=== PATIENT | male | born 1940 | race Caucasian/White ===

== ENCOUNTER 2017-01-22 00:09 | Emergency (ER) | payer MEDICARE, OTHER ==
[2017-01-22 00:18] VITALS: BP 130/69
[2017-01-22] MEDS ORDERED: Proparacaine 0.5% Ophth Soln 15 ML Bottle EYELF PRN (00:29)
[2017-01-22] MEDS ORDERED: Fluorescein 1 MG Ophth Strip EYELF ONE (00:30)
[2017-01-22 01:24] LABS: CHLORIDE,CL 104 mmol/L (98-107); SODIUM,NA 139 mmol/L (136-145)
--- NOTE | 2017-01-22 02:05 | EDM.PDOC ---
ED HPI GENERAL MEDICAL PROBLEM - General Chief Complaint: Eye Problems Stated Complaint: Pain Behind Left Eye Time Seen by Provider: 01/22/17 00:25 Source of Information: Reports: Patient History Limitations: Reports: No Limitations - History of Present Illness INITIAL COMMENTS - FREE TEXT/NARRATIVE: Pt. states that he developed pain behind his L eye tonight prior to going to sleep. Pt. states that he had just taken a shower and denied any foreign body or material exposure to the eye. Pt. states that the onset of the discomfort was very acute, as worse when looking medially and superiorly with the eye. Pt. states that his vision is preserved. Pt. states that he has not have any fever or chills and denies any occular or facial trauma. He denies any increased lacrimation, sinus congestion, or rhinorrhea. He also denies any blurred vision. Onset: Today, Sudden Onset Time: 22:30 Location: Reports: Face (posterior L eye) Quality: Reports: Ache, Sharp, Stabbing Severity: Moderate Behind Left Eye Pain Score (Numeric/FACES): 5 - Related Data Allergies Allergy/AdvReac Type Severity Reaction Status Date / Time budesonide [From Symbicort] Allergy Difficulty Verified 01/22/17 00:16 Breathing dextromethorphan Allergy Cannot Verified 01/22/17 00:16 Remember formoterol fumarate Allergy Difficulty Verified 01/22/17 00:16 [From Symbicort] Breathing guaifenesin [From Robitussin] Allergy Difficulty Verified 01/22/17 00:16 Breathing mometasone furoate Allergy Difficulty Verified 01/22/17 00:16 Breathing Home Meds: Home Meds Aspirin [Ramses Chewable] 1 tab PO DAILY 03/28/13 [History] Docusate Sodium [Colace] 1 tab PO BID PRN 03/28/13 [History] FLUoxetine [PROzac] 2 cap PO DAILY 03/28/13 [History] Finasteride [Proscar] 1 tab PO DAILY 03/28/13 [History] Gabapentin [Neurontin] 1 tab PO TID 03/28/13 [History] Simvastatin [Zocor] 1 tab PO BEDTIME 03/28/13 [History] oxyCODONE HCl/Acetaminophen [oxyCODONE-Acetaminophen 5-325] 1 - 2 tab PO Q6H PRN 03/28/13 [History] Meclizine [Antivert] 12.5 - 25 mg PO TID PRN #30 tab 06/12/13 [Rx] Albuterol Sulfate [Ventolin Hfa] 8 gm IH Q6H PRN 02/23/14 [History] Albuterol [Proventil Neb Soln] 2.5 mg INH QIDRT PRN 02/23/14 [History] Alum Hydrox/Mag Hydrox/Simeth [Maalox Advanced] 5 ml PO BID PRN 02/23/14 [ History] Ascorbate Calcium/Bioflavonoid [[place]-C 500 MG] 1 tab PO DAILY 02/23/14 [History ] Cholecalciferol (Vitamin D3) [Vitamin D] 1,000 unit PO BID 02/23/14 [History] Diclofenac Sodium 50 mg PO BID 02/23/14 [History] Docusate Sodium/Sennosides [Senokot-S] 1 each PO BID PRN 02/23/14 [History] Fluocinonide [Fluocinonide 0.05% Oint] 30 gm TOP BID PRN 02/23/14 [History] Fluticasone/Salmeterol [Advair 250-50 Diskus] 1 puff INH BID 02/23/14 [History] Ibuprofen 2 tab PO Q8H PRN 02/23/14 [History] Ipratropium [Atrovent] 0.5 mg INH Q6H 02/23/14 [History] Lycopene 10 mg PO DAILY 02/23/14 [History] Magnesium Hydroxide [Milk of Magnesia] 15 - 30 mg PO Q6H PRN 02/23/14 [History] Magnesium Oxide [Magnesium] 1 tab PO DAILY 02/23/14 [History] Menthol/Methyl Salicylate [Analgesic [place]] 29 gm .XX 02/23/14 [History] Morphine [MS Contin] 60 mg PO Q12H 02/23/14 [History] Multivitamin [Multivitamins] 1 each PO DAILY 02/23/14 [History] Nitroglycerin [Nitrostat] 0.4 mg SL ASDIRECTED PRN 02/23/14 [History] [place]-3/DHA/Epa/Fish Oil [Fish Oil 1,400 MG Softgel] 1 each PO DAILY 02/23/14 [ History] [place] Oil/[place]-3 Fatty Acids [Sv [place] Oil 1,000 mg Softgel] 1 each PO DAILY 02/23/14 [History] Terazosin [Hytrin] 2 tab PO DAILY 02/23/14 [History] Vitamin B Comp W-C/FA/Zinc [Julissa B Strong with C & Zinc Tb] 1 each PO DAILY [History] Vitamin E 1 tab PO DAILY 02/23/14 [History] Melatonin 6 mg PO BEDTIME 01/18/16 [History] Past Medical History Respiratory History: Reports: Asthma, COPD Musculoskeletal History: Reports: Other (See Below) Other Musculoskeletal History: costochondritis Social & Family History - Tobacco Use Smoking Status *Q: Former Smoker Years of Tobacco use: 20 Used Tobacco, but Quit: Yes Month Tobacco Last Used: 30 years ago Second Hand Smoke Exposure: No - Alcohol Use Days Per Week of Alcohol Use: 0 - Recreational Drug Use Recreational Drug Use: No ED ROS GENERAL - Review of Systems Review Of Systems: See Below Constitutional: Reports: No Symptoms HEENT: Reports: Eye Pain Respiratory: Reports: No Symptoms Cardiovascular: Reports: No Symptoms Endocrine: Reports: No Symptoms GI/Abdominal: Reports: No Symptoms : Reports: No Symptoms Musculoskeletal: Reports: No Symptoms Skin: Reports: No Symptoms Neurological: Reports: No Symptoms Psychiatric: Reports: No Symptoms Hematologic/Lymphatic: Reports: No Symptoms Immunologic: Reports: No Symptoms ED EXAM GENERAL W FULL EYE - Physical Exam Exam: See Below Exam Limited By: No Limitations General Appearance: Alert, WD/WN, No Apparent Distress Eye Exam: Bilateral Eye: EOMI, Normal Fundi, Normal Inspection, PERRL Visual Acuity (R) 20/: 25 Visual Acuity (L) 20/: 20 IOP (L) in mmH IOP Measure with (Equipment): Tonopen Eyelids: Bilateral: Normal Appearance Conjunctiva & Sclera: Bilateral: Normal Appearance Cornea Exam: Bilateral: Normal Appearance Extraocular Movements: Bilateral: Intact Pupils: Normal Accommodation Pupillary Size: Bilateral: 3 mm Pupillary Reaction: Bilateral: Brisk Anterior Chamber: Bilateral: Normal Appearance Posterior Chamber: Bilateral: Normal Funduscopic Ears: Normal External Exam, Normal Canal, Hearing Grossly Normal, Normal TMs Nose: Normal Inspection, Normal Mucosa, No Blood Throat/Mouth: Normal Inspection, Normal Lips, Normal Oropharynx, Normal Voice Head: Atraumatic, Normocephalic Neck: Normal Inspection, Supple, Non-Tender, Full Range of Motion Respiratory/Chest: No Respiratory Distress, Lungs Clear, Normal Breath Sounds, No Accessory Muscle Use Cardiovascular: Normal Peripheral Pulses, Regular Rate, Rhythm, No Edema Neurological: Alert, Oriented, CN II-XII Intact, Normal Cognition, Normal Gait, Normal Reflexes, No Motor/Sensory Deficits Skin Exam: Warm, Dry, Intact, Normal Color, No Rash Course - Vital Signs Last Recorded V/S: Last Vital Signs Temp 37.5 C 01/22/17 00:17 Pulse 69 01/22/17 00:17 Resp 16 01/22/17 00:17 BP 130/69 01/22/17 00:17 Pulse Ox 96 01/22/17 00:17 - Orders/Labs/Meds Orders: Active Orders 24 hr Category Date Time Status Head wo Cont [CT] Stat Exams 01/22/17 00:29 Taken Proparacaine [Proparacaine 0.5% Ophth Soln] Med 01/22/17 00:29 Active 1 ml EYELF ASDIRECTED PRN Medication Orders Proparacaine HCl (Proparacaine 0.5% Ophth Soln) 1 ml EYELF ASDIRECTED PRN PRN Reason: Other Labs: Laboratory Tests 01/22/17 01/22/17 01/22/17 Range/Units 00:58 00:58 00:58 WBC 7.2 (4.0-10.0) x10^3/uL RBC 4.32 L (4.5-6.0) x10^6/uL Hgb 13.7 L (14.0-18.0) g/dL Hct 40.4 (40.0-52.0) % MCV 93.5 H (78.0-93.0) fL MCH 31.7 (26.0-32.0) pg MCHC 33.9 (32.0-36.0) g/dL RDW Coeff of Lillian 12.2 (10.0-15.0) % Plt Count 146 (130-400) x10^3/uL Neut % (Auto) 53.9 (50.0-80.0) % Lymph % (Auto) 22.2 L (25.0-50.0) % [place] % (Auto) 9.3 (2.0-11.0) % Eos % (Auto) 14.0 H (0.0-4.0) % Baso % (Auto) 0.6 (0.2-1.2) % PT 10.2 (9.8-11.8) SEC INR 0.9 L (2.0-3.5) Sodium 139 (136-145) mmol/L Potassium 4.3 (3.5-5.1) mmol/L Chloride 104 (98-107) mmol/L Carbon Dioxide 29 (21-32) mmol/L BUN 19 H (7-18) mg/dL Creatinine 0.8 (0.70-1.30) mg/dL Est Cr Clr Drug Dosing 77.19 mL/min Estimated GFR (MDRD) > 60 Glucose 111 H (74-106) mg/dL Calcium 8.3 L (8.5-10.1) mg/dL Corrected Calcium 8.70 (8.5-10.1) mg/dL Total Bilirubin 0.8 (0.2-1.0) mg/dL AST 14 L (15-37) U/L ALT 22 (16-63) U/L Alkaline Phosphatase 66 (46-116) U/L C-Reactive Protein 2.1 H (<=0.9) mg/dL Total Protein 6.9 (6.4-8.2) g/dL Albumin 3.5 (3.4-5.0) g/dL Globulin 3.4 Albumin/Globulin Ratio 1.03 Meds: Medications Generic Name Dose Route Start Last Admin Trade Name Freq PRN Reason Stop Dose Admin Proparacaine HCl 1 ml 01/22/17 00:29 Proparacaine 0.5% Ophth Soln EYELF ASDIRECTED PRN Other Discontinued Medications Generic Name Dose Route Start Last Admin Trade Name Freq PRN Reason Stop Dose Admin Fluorescein Sodium 1 mg 01/22/17 00:30 Ful-Sayda EYELF 01/22/17 00:31 ONETIME ONE Departure - Departure Time of Disposition: 02:01 Disposition: Home, Self-Care 01 Condition: Good Clinical Impression: Ocular pain, left eye - Discharge Information Referrals: Melo Cabrera MD [Primary Care Provider] - Forms: ED Department Discharge Additional Instructions: Call [facility] tomorrow morning [phone]. I spoke with Dr. Mayo at [facility] and he would like to see you in the clinic tomorrow morning. Return to ER if you have any rapid vision loss or change. The address for the eye clinic is [address] [place] [address] in [place]. Tell the guest relations receptionist that Dr. Mayo would like to see you today. If you are having trouble getting an appointment, please contact the ER and I will assist you. - My Orders Last 24 Hours: My Active Orders 01/22/17 00:29 Head wo Cont [CT] Stat Proparacaine [Proparacaine 0.5% Ophth Soln] 1 ml EYELF ASDIRECTED PRN - Assessment/Plan Last 24 Hours: My Active Orders 01/22/17 00:29 Head wo Cont [CT] Stat Proparacaine [Proparacaine 0.5% Ophth Soln] 1 ml EYELF ASDIRECTED PRN Assessment:: L eye pain Plan: Call [facility] tomorrow morning [phone]. I spoke with Dr. Mayo at [facility] and he would like to see you in the clinic tomorrow morning. Return to ER if you have any rapid vision loss or change. The address for the eye clinic is [address] [place] [address] in [place]. Tell the guest relations receptionist that Dr. Mayo would like to see you today. If you are having trouble getting an appointment, please contact the ER and I will assist you.
== END 2017-01-22 01:00 | disposition home or self-care (01) ==
LOC: VM.ED 00:09
DX: H57.12 Ocular pain, left eye (principal); Z87.891 Personal history of nicotine dependence; J44.9 Chronic obstructive pulmonary disease, unspecified; Z79.82 Long term (current) use of aspirin; Z79.899 Other long term (current) drug therapy; Z88.8 Allergy status to other drugs, medicaments and biological substances
CPT/HCPCS: 36415; 70450; 80053; 85025; 85610; 86140; 99283-GF; 99284

== ENCOUNTER 2018-04-18 16:13 | Emergency (ER) | payer OTHER, MEDICARE ==
[2018-04-18 16:30] VITALS: BP 107/54
[2018-04-18] MEDS: Meclizine 25 MG Tab PO ONE (16:56)
[2018-04-18] MEDS: LORazepam 1 MG Tab PO ONE (16:56)
--- NOTE | 2018-04-18 17:05 | CT ---
[id number] CT/CT Head WO IV EXAM: CT Head WO IV CLINICAL DATA: VERTIGO COMPARISON: CORRELATION IS MADE WITH THE EXAM OF JANUARY 22, 2017. FINDINGS: There is no mass or mass effect. There is no hemorrhage or hydrocephalus. There are no extra-axial fluid collections. There are no sites of abnormal attenuation. IMPRESSION: NO PLAIN CT EVIDENCE OF ACUTE INTRACRANIAL PROCESS. Macho Crenshaw MD 04/18/18 1661 Thank you for allowing us to participate in the care of your patient.
[2018-04-18 17:30] LABS: CHLORIDE,CL 106 mmol/L (98-107); SODIUM,NA 142 mmol/L (136-145)
[2018-04-18 17:31] LABS: ANION GAP 11.7 mmol/L (10-20)
--- NOTE | 2018-04-19 06:24 | EDM.PDOC ---
ED HPI GENERAL MEDICAL PROBLEM - General Chief Complaint: General Time Seen by Provider: 04/18/18 16:20 Source of Information: Reports: Patient History Limitations: Reports: No Limitations - History of Present Illness INITIAL COMMENTS - FREE TEXT/NARRATIVE: Complains of dizziness that started earlier today. Pt. states that he has not recently been ill. No chest pain or shortness of breath. Denies any hearing problems. Pt. has had intermittent vertigo in the past and has taken meclizine. No nausea or vomiting. Pt. states that he feels as though the room is spinning. He states that when he turns his head, it feels as though it keeps on spinning when it stops. Onset Date: 04/19/18 - Related Data Allergies Allergy/AdvReac Type Severity Reaction Status Date / Time budesonide [From Symbicort] Allergy Difficulty Verified 04/18/18 16:34 Breathing dextromethorphan Allergy Cannot Verified 04/18/18 16:34 Remember formoterol fumarate Allergy Difficulty Verified 04/18/18 16:34 [From Symbicort] Breathing guaifenesin [From Robitussin] Allergy Difficulty Verified 04/18/18 16:34 Breathing mometasone furoate Allergy Difficulty Verified 04/18/18 16:34 Breathing Home Meds: Home Meds Aspirin [Ramses Chewable] 1 tab PO DAILY 03/28/13 [History] Docusate Sodium [Colace] 1 tab PO BID PRN 03/28/13 [History] FLUoxetine [PROzac] 2 cap PO DAILY 03/28/13 [History] Finasteride [Proscar] 1 tab PO DAILY 03/28/13 [History] Simvastatin [Zocor] 1 tab PO BEDTIME 03/28/13 [History] oxyCODONE HCl/Acetaminophen [oxyCODONE-Acetaminophen 5-325] 1 - 2 tab PO Q6H PRN 03/28/13 [History] Ascorbate Calcium/Bioflavonoid [[place]-C 500 MG] 1 tab PO DAILY 02/23/14 [History ] Cholecalciferol (Vitamin D3) [Vitamin D] 1,000 unit PO BID 02/23/14 [History] Diclofenac Sodium 50 mg PO BID 02/23/14 [History] Docusate Sodium/Sennosides [Senokot-S] 2 each PO BID PRN 02/23/14 [History] Ibuprofen 2 tab PO Q8H PRN 02/23/14 [History] Lycopene 10 mg PO DAILY 02/23/14 [History] Magnesium Hydroxide [Milk of Magnesia] 15 - 30 mg PO DAILY PRN 02/23/14 [History ] Magnesium Oxide [Magnesium] 1 tab PO DAILY 02/23/14 [History] Multivitamin [Multivitamins] 1 each PO DAILY 02/23/14 [History] [place]-3/DHA/Epa/Fish Oil [Fish Oil 1,400 MG Softgel] 1 each PO DAILY 02/23/14 [ History] [place] Oil/[place]-3 Fatty Acids [Sv [place] Oil 1,000 mg Softgel] 1 each PO DAILY 02/23/14 [History] Melatonin 6 mg PO BEDTIME 01/18/16 [History] Alum Hydrox/Mag Hydrox/Simeth [Maalox Advanced] 5 ml PO BID PRN 04/18/18 [ History] Benzonatate 100 mg PO TID PRN 04/18/18 [History] Lidocaine 5% [Lidoderm 5%] 1 patch TOP DAILY 04/18/18 [History] Meclizine [Antivert] 12.5 - 25 mg PO Q4H PRN 04/18/18 [History] Meloxicam 15 mg PO DAILY 04/18/18 [History] Morphine Sulfate [Morphine Sulfate ER] 30 mg PO Q8H 04/18/18 [History] Naloxone HCl [Narcan] 4 mg NS ASDIRECTED 04/18/18 [History] Prazosin HCl [Prazosin] 4 mg PO BEDTIME 04/18/18 [History] Pregabalin [Lyrica] 150 mg PO BID 04/18/18 [History] Terbinafine [LamISIL AT 1% Crm] 12 gm TOP BID 04/18/18 [History] Thiamine [Vitamin B-1] 100 mg PO BEDTIME 04/18/18 [History] Topiramate 100 mg PO BEDTIME 04/18/18 [History] Vitamin E 400 unit PO DAILY 04/18/18 [History] tiZANidine [Zanaflex] 4 mg PO Q6H PRN 04/18/18 [History] Past Medical History Respiratory History: Reports: Asthma, COPD Musculoskeletal History: Reports: Other (See Below) Other Musculoskeletal History: costochondritis Social & Family History - Tobacco Use Smoking Status *Q: Never Smoker ED ROS GENERAL - Review of Systems Review Of Systems: See Below Constitutional: Reports: No Symptoms HEENT: Reports: No Symptoms Respiratory: Reports: No Symptoms Cardiovascular: Reports: No Symptoms Endocrine: Reports: No Symptoms GI/Abdominal: Reports: No Symptoms : Reports: No Symptoms Musculoskeletal: Reports: No Symptoms Skin: Reports: No Symptoms Neurological: Reports: Dizziness Psychiatric: Reports: No Symptoms Hematologic/Lymphatic: Reports: No Symptoms Immunologic: Reports: No Symptoms ED EXAM, GENERAL - Physical Exam Exam: See Below Exam Limited By: No Limitations General Appearance: Alert, WD/WN, No Apparent Distress Eye Exam: Bilateral Eye: EOMI, Normal Fundi, Normal Inspection, Nystagmus (R beating horizontal), PERRL Ears: Normal External Exam, Normal Canal, Hearing Grossly Normal, Normal TMs Ear Exam: Bilateral Ear: Auricle Normal, Canal Normal, TM normal Nose: Normal Inspection, Normal Mucosa, No Blood Throat/Mouth: Normal Inspection, Normal Lips, Normal Teeth, Normal Gums, Normal Oropharynx, Normal Voice, No Airway Compromise Head: Atraumatic, Normocephalic Neck: Normal Inspection, Supple, Non-Tender, Full Range of Motion Respiratory/Chest: No Respiratory Distress, Lungs Clear, Normal Breath Sounds, No Accessory Muscle Use, Chest Non-Tender Cardiovascular: Normal Peripheral Pulses, Regular Rate, Rhythm, No Edema, No Gallop, No JVD, No Murmur, No Rub Peripheral Pulses: 4+: Radial (L), Radial (R) GI/Abdominal: Normal Bowel Sounds, Soft, Non-Tender, No Organomegaly, No Distention, No Abnormal Bruit, No Mass (Male) Exam: Deferred Rectal (Males) Exam: Deferred Back Exam: Normal Inspection, Full Range of Motion, NT Extremities: Normal Inspection, Normal Range of Motion, Non-Tender, Normal Capillary Refill, No Pedal Edema Neurological: Alert, Oriented, CN II-XII Intact, Normal Cognition, Normal Gait, Normal Reflexes, No Motor/Sensory Deficits Course - Vital Signs Last Recorded V/S: Last Vital Signs Temp 37.3 C 04/18/18 16:28 Pulse 77 04/18/18 16:28 Resp 16 04/18/18 16:28 BP 107/54 L 04/18/18 16:28 Pulse Ox 98 04/18/18 16:28 - Orders/Labs/Meds Orders: Active Orders 24 hr Category Date Time Status EKG Documentation Completion [RC] STAT Care 04/18/18 16:39 Active Labs: Laboratory Tests 04/18/18 04/18/18 Range/Units 16:57 16:57 WBC 9.2 (4.0-10.0) x10^3/uL RBC 4.28 L (4.5-6.0) x10^6/uL Hgb 13.4 L (14.0-18.0) g/dL Hct 40.9 (40.0-52.0) % MCV 95.6 H (78.0-93.0) fL MCH 31.3 (26.0-32.0) pg MCHC 32.8 (32.0-36.0) g/dL RDW Coeff of Lillian 12.9 (10.0-15.0) % Plt Count 158 (130-400) x10^3/uL Neut % (Auto) 72.1 (50.0-80.0) % Lymph % (Auto) 15.5 L (25.0-50.0) % [place] % (Auto) 8.3 (2.0-11.0) % Eos % (Auto) 3.9 (0.0-4.0) % Baso % (Auto) 0.2 (0.2-1.2) % Sodium 142 (136-145) mmol/L Potassium 3.7 (3.5-5.1) mmol/L Chloride 106 (98-107) mmol/L Carbon Dioxide 28 (21-32) mmol/L Anion Gap 11.7 (10-20) mmol/L BUN 20 H (7-18) mg/dL Creatinine 0.9 (0.70-1.30) mg/dL Est Cr Clr Drug Dosing 65.28 mL/min Estimated GFR (MDRD) > 60 Glucose 122 H (74-106) mg/dL Calcium 8.3 L (8.5-10.1) mg/dL Corrected Calcium 8.86 (8.5-10.1) mg/dL Total Bilirubin 0.7 (0.2-1.0) mg/dL AST 13 L (15-37) U/L ALT 25 (16-63) U/L Alkaline Phosphatase 60 (46-116) U/L Troponin I < 0.017 (<=0.056) ng/mL C-Reactive Protein 0.3 (<=0.9) mg/dL Total Protein 6.5 (6.4-8.2) g/dL Albumin 3.3 L (3.4-5.0) g/dL Globulin 3.2 Albumin/Globulin Ratio 1.03 Meds: Medications Discontinued Medications Generic Name Dose Route Start Last Admin Trade Name Freq PRN Reason Stop Dose Admin Lorazepam 1 mg 04/18/18 16:39 04/18/18 16:56 Ativan PO 04/18/18 16:40 1 mg ONETIME ONE Administration Meclizine HCl 25 mg 04/18/18 16:39 04/18/18 16:56 Antivert PO 04/18/18 16:40 25 mg ONETIME ONE Administration Departure - Departure Time of Disposition: 17:45 Disposition: Home, Self-Care 01 Condition: Good Clinical Impression: Labyrinthitis, Vertigo - Discharge Information Instructions: Labyrinthitis, [id number] Referrals: Melo Cabrera MD [Primary Care Provider] - Forms: ED Department Discharge Additional Instructions: Take meclizine 25mg if you are continuing to have vertigo. Our physical therapy dept. will be in contact with your tomorrow to set up an appointment for vestibular therapy. - My Orders Last 24 Hours: My Active Orders 04/18/18 16:39 EKG Documentation Completion [RC] STAT - Assessment/Plan Last 24 Hours: My Active Orders 04/18/18 16:39 EKG Documentation Completion [RC] STAT Plan: Take meclizine 25mg if you are continuing to have vertigo. Our physical therapy dept. will be in contact with your tomorrow to set up an appointment for vestibular therapy.
== END 2018-04-18 17:45 | disposition home or self-care (01) ==
LOC: VM.ED 16:13
DX: H83.09 Labyrinthitis, unspecified ear (principal); J44.9 Chronic obstructive pulmonary disease, unspecified; Z88.8 Allergy status to other drugs, medicaments and biological substances; Z79.82 Long term (current) use of aspirin; Z79.899 Other long term (current) drug therapy
CPT/HCPCS: 36415; 70450; 80053; 84484; 85025; 86140; 93005; 99284; A9270

== ENCOUNTER 2022-09-07 14:53 | Emergency (ER) | payer OTHER, MEDICARE ==
[2022-09-07 15:30] VITALS: BP 87/48; PULSE 73
== END 2022-09-07 17:22 | disposition home or self-care (01) ==
LOC: VM.ED 14:53
DX: S02.32XA Fracture of orbital floor, left side, initial encounter for closed fracture (principal); S01.21XA Laceration without foreign body of nose, initial encounter; J44.9 Chronic obstructive pulmonary disease, unspecified; Z79.899 Other long term (current) drug therapy; Z88.8 Allergy status to other drugs, medicaments and biological substances; W01.198A Fall on same level from slipping, tripping and stumbling with subsequent striking against other object, initial encounter
CPT/HCPCS: 70450; 70486; 99283

== ENCOUNTER 2023-07-04 11:11 | Emergency (ER) | payer OTHER, MEDICARE ==
[2023-07-04 11:38] LABS: BASOPHILS ABSOLUTE AUTO 0.1 x10^3/uL (0.0-0.2); BASOPHILS PERCENT AUTO 0.8 % (0.2-1.2); EOSINOPHILS ABSOLUTE AUTO 0.5 x10^3/uL (0.0-0.5); EOSINOPHILS PERCENT AUTO 6.4 % (0.0-4.0); HEMATOCRIT 45.6 % (40.0-52.0); IMMATURE GRAN ABSOLUTE AUTO 0.01 x10^3/uL (0.00-0.07); LYMPHOCYTES ABSOLUTE AUTO 1.1 x10^3/uL (1.0-4.8); LYMPHOCYTES PERCENT AUTO 13.9 % (25.0-50.0); MEAN CORPUSCULAR HEMOGLOBIN 31.8 pg (26.0-32.0); MEAN CORPUSCULAR HGB CONC 32.9 g/dL (32.0-36.0); MEAN CORPUSCULAR VOLUME 96.8 fL (78.0-93.0); MONOCYTES ABSOLUTE AUTO 0.5 x10^3/uL (0.0-0.8); NEUTROPHILS ABSOLUTE AUTO 5.8 x10^3/uL (1.8-7.7); NEUTROPHILS PERCENT AUTO 72.8 % (50.0-80.0); PLATELET COUNT,PLT 148 x10^3/uL (130-400); RED BLOOD CELL COUNT 4.71 x10^6/uL (4.5-6.0); WHITE BLOOD CELL COUNT,WBC 7.9 x10^3/uL (4.0-10.0)
[2023-07-04] MEDS: methylPREDNISolone Sodium Succinate 125 MG/2 ML SDV IVPUSH ONE (11:59)
[2023-07-04] MEDS: Sodium Chloride 0.9% 10 ML Syringe FLUSH PRN (12:00)
[2023-07-04 12:02] LABS: A/G RATIO 1.09; ALANINE AMINOTRANSFERASE,ALT 24 U/L (16-63); ALBUMIN 3.6 g/dL (3.4-5.0); ALKALINE PHOSPHATASE 72 U/L (46-116); ASPARTATE AMNIOTRANSFERASE,AST 26 U/L (15-37); BILIRUBIN TOTAL 1.5 mg/dL (0.2-1.0); BLOOD UREA NITROGEN,BUN 15 mg/dL (7-18); CALCIUM 8.7 mg/dL (8.5-10.1); CARBON DIOXIDE,CO2 27 mmol/L (21-32); CHLORIDE,CL 105 mmol/L (98-107); CREATININE 0.8 mg/dL (0.70-1.30); GLUCOSE RANDOM 94 mg/dL (70-99); MAGNESIUM 1.8 mg/dL (1.8-2.4); PROTEIN TOTAL,TP 6.9 g/dL (6.4-8.2); SODIUM,NA 142 mmol/L (136-145)
[2023-07-04 12:03] LABS: C-REACTIVE PROTEIN < 0.50 mg/dL (<=0.50); ESTIMATED GFR 89 mL/min (>=60)
[2023-07-04 12:20] LABS: INR 1.1 (0.9-1.1); PROTHROMBIN TIME 10.8 SEC (8.9-11.5); PTT,PARTIAL THROMBOPLSTIN TIME 26.5 SEC (21.9-33.8)
[2023-07-05 14:18] VITALS: BP 132/52; PULSE 63
== END 2023-07-04 12:45 | disposition home or self-care (01) ==
LOC: VM.ED 11:11
DX: J44.1 Chronic obstructive pulmonary disease with (acute) exacerbation (principal); Z79.82 Long term (current) use of aspirin; Z79.899 Other long term (current) drug therapy; Z88.8 Allergy status to other drugs, medicaments and biological substances
CPT/HCPCS: 71045; 80053; 83735; 84484; 85025; 85379; 85610; 85730; 86140; 93005; 93010; 96374; 99284; 99285-25; J2930; J3490

== ENCOUNTER 2023-11-06 14:38 | Emergency (ER) | payer OTHER, MEDICARE ==
[2023-11-06 15:05] LABS: BASOPHILS PERCENT AUTO 0.1 % (0.2-1.2); EOSINOPHILS PERCENT AUTO 0.1 % (0.0-4.0); HEMATOCRIT 43.6 % (40.0-52.0); HEMOGLOBIN 14.8 g/dL (14.0-18.0); IMMATURE GRAN ABSOLUTE AUTO 0.03 x10^3/uL (0.00-0.07); LYMPHOCYTES ABSOLUTE AUTO 0.9 x10^3/uL (1.0-4.8); LYMPHOCYTES PERCENT AUTO 6.1 % (25.0-50.0); MEAN CORPUSCULAR HEMOGLOBIN 32.5 pg (26.0-32.0); MEAN CORPUSCULAR HGB CONC 33.9 g/dL (32.0-36.0); MEAN CORPUSCULAR VOLUME 95.6 fL (78.0-93.0); MONOCYTES ABSOLUTE AUTO 0.6 x10^3/uL (0.0-0.8); MONOCYTES PERCENT AUTO 4.3 % (2.0-11.0); NEUTROPHILS ABSOLUTE AUTO 12.6 x10^3/uL (1.8-7.7); NEUTROPHILS PERCENT AUTO 89.2 % (50.0-80.0); PLATELET COUNT,PLT 132 x10^3/uL (130-400); RED BLOOD CELL COUNT 4.56 x10^6/uL (4.5-6.0); WHITE BLOOD CELL COUNT,WBC 14.2 x10^3/uL (4.0-10.0)
[2023-11-06] MEDS: Sodium Chloride 0.9% 1,000 ML IV ONE ×2 (15:05→17:06)
[2023-11-06 15:32] LABS: A/G RATIO 1.06; ALBUMIN 3.4 g/dL (3.4-5.0); ANION GAP 12.8 mmol/L (5-15); BILIRUBIN TOTAL 2.6 mg/dL (0.2-1.0); CALCIUM 8.7 mg/dL (8.5-10.1); CREATININE 0.8 mg/dL (0.70-1.30); EST CRCL DRUG DOSING (CG) 65.35 mL/min; POTASSIUM,K 3.8 mmol/L (3.5-5.1); PROTEIN TOTAL,TP 6.6 g/dL (6.4-8.2)
[2023-11-06 16:34] VITALS: PULSE 58
[2023-11-06] MEDS: Ondansetron 4 MG/2 ML SDV IVPUSH ONE (17:36)
[2023-11-06 18:09] LABS: APPEARANCE,URINE CLEAR (CLEAR); BILIRUBIN,URINE SMALL (NEGATIVE); COLOR,URINE AMBER (YELLOW); GLUCOSE,URINE NEGATIVE (NEGATIVE); KETONES,URINE TRACE mg/dL (NEGATIVE); LEUKOCYTE ESTERASE,URINE NEGATIVE (NEGATIVE); NITRITE,URINE NEGATIVE (NEGATIVE); OCCULT BLOOD,URINE NEGATIVE (NEGATIVE); PH,URINE 5.5 (5.0-8.0); PROTEIN,URINE NEGATIVE (NEGATIVE); UROBILINOGEN,URINE 0.2 EU/dL (0.2)
[2023-11-06 19:28] VITALS: BP 98/48
== END 2023-11-06 20:00 | disposition short-term general hospital (02) ==
LOC: VM.ED 14:38 → SUPCPDRO 14:38 → VM.ED 20:00
DX: M25.552 Pain in left hip (principal); R74.8 Abnormal levels of other serum enzymes; J45.909 Unspecified asthma, uncomplicated; Z87.891 Personal history of nicotine dependence; Z79.899 Other long term (current) drug therapy; Z79.82 Long term (current) use of aspirin; Z88.8 Allergy status to other drugs, medicaments and biological substances; W19.XXXA Unspecified fall, initial encounter
CPT/HCPCS: 70450; 80053; 81003; 82550; 83605; 84484; 85025; 93005; 93010; 96361; 96374; 99284; 99285-25; J2405; J7030